=== PATIENT | female | born 1965 | race African-American/Black ===

== ENCOUNTER 2017-02-21 22:32 | Emergency (ER) | payer MEDICAID ==
[~2017-02-21] VITALS: Ht 160 cm; Wt 90.7 kg
[~2017-02-21 22:32] MED LIST: ALBUTEROL SULF8.5 GM INH; GUAIFENESIN-CO118 M1 ORAL; IBUPROFEN600 MG ORAL; NKM
[2017-02-21 23:00] VITALS: BP 122/81
[2017-02-21 23:52] LABS: BASOPHILS % (AUTO) 1.2 % (0.0-2.0); EOSINOPHILS % (AUTO) 4.1 % (0.0-3.0); LYMPHOCYTES % (AUTO) 35.9 % (20.0-45.0); MEAN CORPUSCULAR HEMOGLOBIN 29.6 PG (27.0-31.0); MEAN CORPUSCULAR HGB CONC 33.6 G/DL (32.0-36.0); MEAN CORPUSCULAR VOLUME 88 FL (80-99); MEAN PLATELET VOLUME 7.4 FL (6.5-10.1); MONOCYTES % (AUTO) 7.3 % (1.0-10.0); NEUTROPHILS % (AUTO) 51.6 % (45.0-75.0); PLATELET COUNT 222 K/UL (150-450); RED BLOOD COUNT 4.95 M/UL (4.20-5.40); RED CELL DISTRIBUTION WIDTH 14.8 % (11.6-14.8); WHITE BLOOD COUNT 6.8 K/UL (4.8-10.8)
[2017-02-22 00:02] LABS: ANION GAP 12 (5-15); CALCIUM 9.4 mg/dL (8.6-10.2); CARBON DIOXIDE 28 mEQ/L (20-30); CHLORIDE 104 mEQ/L (98-107); CREATININE 0.9 mg/dL (0.5-0.9); GLOMERULAR FILTRATION RATE > 60 mL/min (>60); HEMOLYSIS 3; POTASSIUM 4.2 mEQ/L (3.4-4.9); SODIUM 144 mEQ/L (135-145)
[2017-02-22] MEDS ORDERED: HYDROmorphone 1mg/ml Carpuject IVP ONE (01:00)
--- NOTE | 2017-02-22 01:26 | Emergency Room Report ---
History of Present Illness General Chief Complaint: Skin Rash/Abscess Source: Patient Present Illness HPI This 51-year-old female who is right-hand dominant. She presents with chief complaint of right arm pain. She has a mass there for years. She was scheduled for surgery but her insurance change and so that was put off. She just got insurance again in the doctor that was positive surgery no longer accept her insurance. She being transferred to another clinic and Dr. Chapman was told it was a lipoma. She has a similar one on her torso that was removed. Her pain got worse in the last 2-3 weeks. She said she bumped it against a wall and the size double. Pain now radiating up her neck. Also down her arms. She felt weakness in her hand. She denies any new trauma. Denies any fever chills denies any nausea vomiting. Pain is 8/10. Allergies: Coded Allergies: No Known Allergies (Unverified , 07/13/16) Patient History Past Medical History: see triage record, old chart reviewed Past Surgical History: other Pertinent Family History: none Social History: Reports: smoking Last Menstrual Period: Menopause Now: No Immunizations: other Reviewed Nursing Documentation: PMH: Agreed, PSxH: Agreed Nursing Documentation-PMH Past Medical History: No History, Except For Hx Asthma: Yes Review of Systems Eye: Denies: blurred vision, eye pain ENT: Denies: ear pain, nose congestion, throat swelling Respiratory: Denies: cough, shortness of breath Cardiovascular: Denies: chest pain, palpitations Gastrointestinal: Denies: abdominal pain, diarrhea, nausea, vomiting Musculoskeletal: Reports: joint pain, joint swelling, muscle pain, Denies: back pain Skin: Denies: rash Neurological: Denies: headache, numbness Endocrine: Denies: increased thirst, increased urine Hematologic/Lymphatic: Denies: easy bruising All Other Systems: negative except mentioned in HPI Physical Exam Vital Signs Date Time Temp Pulse Resp B/P Pulse Ox O2 Delivery O2 Flow Rate FiO2 02/21/17 22:40 97.9 76 16 122/81 100 Room Air vitals normal Sp02 EP Interpretation: reviewed, normal General Appearance: well appearing, no apparent distress, alert Head: normocephalic, atraumatic Eyes: bilateral eye EOMI, bilateral eye PERRL ENT: hearing grossly normal, normal pharynx Neck: full range of motion, supple, no meningismus Respiratory: chest non-tender, lungs clear, normal breath sounds Cardiovascular #1: regular rate, rhythm, no murmur Gastrointestinal: normal bowel sounds, non tender, no mass, no organomegaly, no bruit, non-distended Musculoskeletal: back normal, gait/station normal, other - Right upper extremity: Beginning at the elbow and extending to mid shaft on the radial side , there is a tense mass measuring about 5" x 3". No redness. Tender to palpation. She has full range of motion of the elbow but is tender with movement. Radial pulse 2+. Neurologic: alert, oriented x3 Psychiatric: mood/affect normal Skin: warm/dry Procedures Additional Procedure Procedure Narrative Procedure: Aspiration Indication: Mass Description: I cleaned area with Betadine and then chlorhexidine. Local anesthetic with 1% lidocaine without epinephrine. Using a 16-gauge needle and tried aspirate the most fluctuant area. There was no drainage. No pus. No bleeding. I did get a scant amount of fatty tissue. Patient tolerated procedure without a problem. Medical Decision Making Diagnostic Impression: Primary Impression: Liposarcoma of right upper extremity ER Course Patient with a mass in the right upper extremity. Further questioning, she said that she had an MRI done before. Her surgery was set up and later canceled. She had a owens appointment for March 01. She told me initially that it was a fatty tumor but when I discussed the CT scan reading she said that they were concerned for more than just a fatty tumor. The DrSylvester was worried that it was cancerous. There is no evidence of bony destruction. No evidence of abscess or septic joint. We'll discharge home. I will give her a CT scan copy and lab work. Laboratory Tests Test 02/21/17 23:26 White Blood Count 6.8 K/UL (4.8-10.8) Red Blood Count 4.95 M/UL (4.20-5.40) Hemoglobin 14.7 G/DL (12.0-16.0) Hematocrit 43.7 % (37.0-47.0) Mean Corpuscular Volume 88 FL (80-99) Mean Corpuscular Hemoglobin 29.6 PG (27.0-31.0) Mean Corpuscular Hemoglobin Concent 33.6 G/DL (32.0-36.0) Red Cell Distribution Width 14.8 % (11.6-14.8) Platelet Count 222 K/UL (150-450) Mean Platelet Volume 7.4 FL (6.5-10.1) Neutrophils (%) (Auto) 51.6 % (45.0-75.0) Lymphocytes (%) (Auto) 35.9 % (20.0-45.0) Monocytes (%) (Auto) 7.3 % (1.0-10.0) Eosinophils (%) (Auto) 4.1 % (0.0-3.0) H Basophils (%) (Auto) 1.2 % (0.0-2.0) Sodium Level 144 mEQ/L (135-145) Potassium Level 4.2 mEQ/L (3.4-4.9) Chloride Level 104 mEQ/L (98-107) Carbon Dioxide Level 28 mEQ/L (20-30) Anion Gap 12 (5-15) Blood Urea Nitrogen 16 mg/dL (7-23) Creatinine 0.9 mg/dL (0.5-0.9) Estimat Glomerular Filtration Rate > 60 mL/min (>60) Glucose Level 90 mg/dL (74-106) Calcium Level 9.4 mg/dL (8.6-10.2) Lab Results Impression labs normal CT/MRI/US Diagnostic Results CT/MRI/US Diagnostic Results : Imaging Test Ordered: CT scan right arm Impression Read by radiologist. 6.8 x 10.9 cm heterogeneous fat attenuating mass. Concern for liposarcoma. Last Vital Signs Date Time Temp Pulse Resp B/P Pulse Ox O2 Delivery O2 Flow Rate FiO2 02/21/17 23:00 97.9 89 16 122/81 100 Room Air Status: improved Disposition: HOME, SELF-CARE Condition: Stable Scripts Hydrocodone/Acetaminophen 5-325* (HYDROCODONE/ACETAMINOPHEN 5-325*) 1 Each Tablet 1 TAB ORAL Q6H Y for For Pain, #30 TAB 0 Refills Prov: JEN ROSEN M.D. 02/22/17 Referrals: [facility],REFERRING (PCP) Additional Instructions: Followup with your DrSylvester in 2-3 days. Return if worse. Keep your appointment. JEN ROSEN M.D. Feb 22, 2017 01:26
[2017-02-22 01:32] VITALS: BP 129/83
[2017-02-22] MEDS ORDERED: HYDROCODON-ACE1 EA15 ORAL (01:57)
[2017-02-22 02:12] VITALS: BP 122/81
== END 2017-02-22 02:12 | disposition home or self-care (01) ==
LOC: EMR 23:02
DX: R22.31 Localized swelling, mass and lump, right upper limb (principal); F17.200 Nicotine dependence, unspecified, uncomplicated; J45.909 Unspecified asthma, uncomplicated
CPT/HCPCS: 10021; 36415; 73200; 80048; 85025; 96374; 99284; J1170; Z7502

== ENCOUNTER 2018-08-21 11:38 | Emergency (ER) | payer MEDICAID ==
[~2018-08-21] VITALS: Ht 162.6 cm; Wt 70.8 kg
[~2018-08-21 11:38] MED LIST changes: +ALBUTEROL2.5 MG/3 M INH; +AMOXICILLIN500 MG ORAL; +HYDROCODON-ACE1 EA15 ORAL; +PREDNISONE20 MG ORAL; +PROMETHAZINE-C118 M1 ORAL
[2018-08-21 11:39] VITALS: BP 122/88
[2018-08-21] MEDS ORDERED: ROBITUSSIN NIG237 ML PO (12:09)
[2018-08-21] MEDS ORDERED: PREDNISONE20 MG ORAL (12:09)
[2018-08-21] MEDS ORDERED: ALBUTEROL SULF8.5 GM INH (12:09)
[2018-08-21] MEDS ORDERED: AMOXICILLIN500 MG ORAL (12:09)
[2018-08-21 12:26] VITALS: BP 132/78
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
== END 2018-08-21 12:29 | disposition home or self-care (01) ==
LOC: EMR 11:50
DX: J18.9 Pneumonia, unspecified organism (principal); F91.8 Other conduct disorders; J45.909 Unspecified asthma, uncomplicated
CPT/HCPCS: 99283

== ENCOUNTER 2018-11-24 10:05 | Emergency (ER) | payer MEDICAID ==
[~2018-11-24] VITALS: Ht 162.6 cm; Wt 70.8 kg
[~2018-11-24 10:05] MED LIST changes: +ROBITUSSIN NIG237 ML PO
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
[2018-11-24 10:54] VITALS: BP 145/81
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
[2018-11-24] MEDS ORDERED: oxyCODONE HCL/Acetaminophen 5/325mg ORAL ONE (11:30)
--- NOTE | 2018-11-24 11:33 | NUR ---
Apply knee immobilizer to pt Lf knee.crutches was given for support,pt understands the use of the crutches.
[2018-11-24] MEDS ORDERED: IBUPROFEN600 MG ORAL (11:37)
[2018-11-24] MEDS ORDERED: NORCO 5-325 TA1 EACH ORAL (11:37)
[2018-11-24 11:49] VITALS: BP 145/81
--- NOTE | 2018-11-24 11:58 | NUR ---
ED Nurse Note:pt. received d/c instructions with prescriptions knee immobilizer and cratchies and pt. left home via car with friend
== END 2018-11-24 12:00 | disposition home or self-care (01) ==
LOC: EMR 10:22
DX: S80.02XA Contusion of left knee, initial encounter (principal); W51.XXXA Accidental striking against or bumped into by another person, initial encounter; Y92.9 Unspecified place or not applicable; J06.9 Acute upper respiratory infection, unspecified; J45.909 Unspecified asthma, uncomplicated
CPT/HCPCS: 99283

== ENCOUNTER 2019-03-02 16:08 | Emergency (ER) | payer MEDICAID ==
[~2019-03-02] VITALS: Ht 162.6 cm; Wt 67.1 kg
[~2019-03-02 16:08] MED LIST changes: +NORCO 5-325 TA1 EACH ORAL
[2019-03-02 16:14] VITALS: BP 134/78
[2019-03-02] MEDS ORDERED: IBUPROFEN600 MG ORAL (16:36)
[2019-03-02] MEDS ORDERED: ROBAXIN-750750 MG PO (16:36)
[2019-03-02 16:45] VITALS: BP 137/71
--- NOTE | 2019-03-02 21:15 | Emergency Room Report ---
History of Present Illness General Chief Complaint: Pain Source: Patient, Medical Record Present Illness HPI Patient is a 53-year-old female presenting for right-sided neck pain for the past 3 weeks. She states that the symptoms began after turning her head rapidly. He has continued and is now a 6 out of 10 dull ache. Radiates to shoulder with movement. She denies previous injury to this area. She has not taken any medication for this yet. She denies other symptoms including chest pain, shortness of breath, numbness Allergies: Coded Allergies: No Known Allergies (Unverified , 07/13/16) Patient History Past Medical History: see triage record Pertinent Family History: none Reviewed Nursing Documentation: PMH: Agreed; PSxH: Agreed Nursing Documentation-PMH Past Medical History: No History, Except For Hx Cardiac Problems: No - Gout, Sciatica Hx Hypertension: No Hx Pacemaker: No Hx Asthma: Yes Hx COPD: No Hx Diabetes: No Hx Cancer: No - liposarcoma 2017-right arm Hx Gastrointestinal Problems: No Hx Dialysis: No History Of Psychiatric Problem: No Hx Neurological Problems: No Hx Cerebrovascular Accident: No Hx Seizures: No Review of Systems All Other Systems: negative except mentioned in HPI Physical Exam Vital Signs Date Time Temp Pulse Resp B/P (MAP) Pulse Ox O2 Delivery O2 Flow Rate FiO2 03/02/19 16:14 98.4 14 134/78 100 Room Air 03/02/19 16:14 79 Sp02 EP Interpretation: reviewed, normal General Appearance: no apparent distress, alert, GCS 15, non-toxic Head: normocephalic, atraumatic Eyes: bilateral eye normal inspection, bilateral eye PERRL ENT: hearing grossly normal, normal pharynx, no angioedema, normal voice Neck: full range of motion, supple, no bony tend, tender lateral - R Respiratory: chest non-tender, lungs clear, normal breath sounds, speaking full sentences Cardiovascular #1: regular rate, rhythm, no edema Neurologic: alert, oriented x3, responsive, motor strength/tone normal, sensory intact, speech normal Psychiatric: judgement/insight normal, memory normal, mood/affect normal, no suicidal/homicidal ideation Skin: normal color, no rash, warm/dry, well hydrated Medical Decision Making PA Attestation Dr. Leahy is my supervising physician. Patient management was discussed with my supervising physician Diagnostic Impression: Primary Impression: Cervical muscle strain Qualified Codes: S16.1XXA - Strain of muscle, fascia and tendon at neck level , initial encounter ER Course Patient is a 53-year-old female presenting for right-sided neck pain for the past 3 weeks. Ddx considered include but not limited to sprain/strain, spasm, contusion, fracture PE: vitals WNL.NAD Head NC/AT PERRL A&Ox3 Neck: soft and supple. Full AROM. TTP over R paraspinous muscles. No midline tenderness. No step-offs Pt will be treated with motrin and robaxin. Heat therapy discussed. F/u with PCP Last Vital Signs Date Time Temp Pulse Resp B/P (MAP) Pulse Ox O2 Delivery O2 Flow Rate FiO2 03/02/19 16:45 98.4 87 17 137/71 100 Room Air Status: improved Disposition: HOME, SELF-CARE Condition: Improved Scripts Methocarbamol* (ROBAXIN-750*) 750 Mg Tablet 750 MG PO TID, #21 TAB 0 Refills Prov: DEMETRICE SUMNER P.A. 03/02/19 Ibuprofen* (MOTRIN*) 600 Mg Tablet 600 MG ORAL Q8H PRN for For Pain, #30 TAB 0 Refills Prov: TERMATIASANLIZZY P.A. 03/02/19 Referrals: NOT CHOSEN [facility],REFERRING (PCP) Departure Forms: Return to Work Return to Work Date: March 02, 2019 Work Restrictions: No Heavy Lifting Other Restrictions: No bending or lifting >10 lb Return to Full Activity: March 08, 2019 Patient Instructions: Muscle Strain Additional Instructions: I discussed my findings with the patient. All questions and concerns have been answered. Treatment and medication compliance have been addressed. I advised the patient that they need to follow up with PMD in 3-5 days. Return to ED if symptoms worsen, new symptoms arise, or if needed for any reason. Patient verbalized understanding of discharge instructions. DEMETRICE SUMNER March 02, 2019 21:14
== END 2019-03-02 16:45 | disposition home or self-care (01) ==
LOC: EMR 16:35
DX: S16.1XXA Strain of muscle, fascia and tendon at neck level, initial encounter (principal); Z85.89 Personal history of malignant neoplasm of other organs and systems; J45.909 Unspecified asthma, uncomplicated; X50.1XXA Overexertion from prolonged static or awkward postures, initial encounter; Y92.9 Unspecified place or not applicable
CPT/HCPCS: 99282

== ENCOUNTER 2019-11-15 11:18 | Emergency (ER) | payer SELFPAY ==
[~2019-11-15] VITALS: Ht 160 cm; Wt 60.3 kg
[~2019-11-15 11:18] MED LIST changes: +ROBAXIN-750750 MG PO
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
[2019-11-15 12:00] VITALS: BP 134/83
--- NOTE | 2019-11-15 12:40 | NUR ---
ED Nurse Note: Dr. Stanford at bedside.
[2019-11-15] MEDS ORDERED: Tylenol #3 tab (300mg/30mg) ORAL ONE (12:45)
[2019-11-15] MEDS ORDERED: ACETAMINOPHEN-1 EAC1 ORAL (12:48)
[2019-11-15 12:52] VITALS: BP 134/83
--- NOTE | 2019-11-15 12:52 | NUR ---
ER DISCHARGE NOTE: Patient is cleared for DC by Dr. Stanford. Patient AxO x 4, VSS. Patient verbalized understanding of DC instructions. ID band removed. Patient ambulates with steady gait, took all belongings.
--- NOTE | 2019-11-15 18:18 | Emergency Room Report ---
History of Present Illness General Chief Complaint: Upper Extremity Injury Source: Patient Present Illness HPI 54-year-old female presents the ED complaining of left shoulder pain. States that while walking yesterday tree branch fell and hit her on the left shoulder. Denies any other injuries. Pain is sharp, 7 out of 10, nonradiating. States she took medication prior to arrival. Has difficulty raising her left shoulder. No other aggravating relieving factors. 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 Hx Gastrointestinal Problems: No Hx Dialysis: No Hx Neurological Problems: No Hx Cerebrovascular Accident: No Hx Seizures: No Review of Systems All Other Systems: negative except mentioned in HPI Physical Exam Vital Signs Date Time Temp Pulse Resp B/P (MAP) Pulse Ox O2 Delivery O2 Flow Rate FiO2 11/15/19 11:24 98.2 58 18 134/83 (100) 99 Room Air Sp02 EP Interpretation: reviewed, normal General Appearance: no apparent distress, alert, GCS 15, non-toxic Head: normocephalic, atraumatic Eyes: bilateral eye normal inspection, bilateral eye PERRL ENT: hearing grossly normal, normal pharynx, no angioedema, normal voice Neck: full range of motion, supple/symm/no masses Respiratory: chest non-tender, lungs clear, normal breath sounds, speaking full sentences Cardiovascular #1: regular rate, rhythm, no edema Cardiovascular #2: 2+ carotid (R), 2+ carotid (L), 2+ radial (R), 2+ radial (L) , 2+ dorsalis pedis (R), 2+ dorsalis pedis (L) Gastrointestinal: normal bowel sounds, non tender, soft, non-distended, no guarding, no rebound Rectal: deferred Genitourinary: normal inspection, no CVA tenderness Musculoskeletal: back normal, normal range of motion, gait/station normal, tender - limited abduction L shoulde. no deformity Neurologic: alert, motor strength/tone normal, oriented x3, sensory intact, responsive, speech normal Psychiatric: judgement/insight normal, memory normal, mood/affect normal, no suicidal/homicidal ideation Reflexes: 3+ bicep (R), 3+ bicep (L), 3+ tricep (R), 3+ tricep (L), 3+ knee (R) , 3+ knee (L) Lymphatic: no adenopathy Procedures Splinting Splinting : Consent: Verbal Pre-Made Type: sling Pre-Proc Neuro Vasc Exam: normal Post-Proc Neuro Vasc Exam: normal Patient Tolerated: Well Complications: None Medical Decision Making Diagnostic Impression: Primary Impression: Shoulder injury Qualified Codes: S49.92XA - Unspecified injury of left shoulder and upper arm , initial encounter ER Course Hospital Course 54-year-old female presents with left shoulder pain Differential diagnoses include: Fracture, dislocation, sprain, contusion Clinical course Patient placed on stretcher. After initial history and physical, I ordered pain medications and Xrays of left shoulder. Patient declined pain meds Xrays prelim read shows no acute fracture/dislocation. placed in shoulder sling I discussed findings with patient. Safe for discharge for close outpatient follow-up. States she has an appointment with her orthopedic regarding her right shoulder. States she will follow-up with him regarding the left shoulder. I also provided Ortho referrals. Diagnosis -shoulder injury Stable and discharged to home. apply ice, keep elevated. weight bear as tolerated. Followup with PMD/ortho. Return to ED if symptoms recur or worsen Other X-Ray Diagnostic Results Other X-Ray Diagnostic Results : X-Ray ordered: L shoulder # of Views/Limited Vs Complete: 3 View Indication: Pain EP Interpretation: Yes Interpretation: no dislocation, no soft tissue swelling, no fractures Impression: No acute disease Electronically Signed by: Electronically signed by Alli Stanford MD Last Vital Signs Date Time Temp Pulse Resp B/P (MAP) Pulse Ox O2 Delivery O2 Flow Rate FiO2 11/15/19 12:52 98.2 81 18 134/83 99 Room Air Status: improved Disposition: HOME, SELF-CARE Condition: Stable Referrals: NOT CHOSEN IPA/,REFERRING (PCP) [facility] Open 24 hour /7 days a week by Appointment Only [phone] [facility] [id number] Patient Instructions: Shoulder Pain, [id number] Alli Stanford MD Nov 15, 2019 18:18
== END 2019-11-15 12:55 | disposition home or self-care (01) ==
LOC: EMR 12:50
DX: S49.92XA Unspecified injury of left shoulder and upper arm, initial encounter (principal); J45.909 Unspecified asthma, uncomplicated; W22.8XXA Striking against or struck by other objects, initial encounter; Y93.01 Activity, walking, marching and hiking; Y92.017 Garden or yard in single-family (private) house as the place of occurrence of the external cause
CPT/HCPCS: 29105; 99283